=== PATIENT | male | born 1965 | race Caucasian/White ===

== ENCOUNTER 2016-06-30 09:46 | Emergency (ER) | payer OTHER, MEDICARE ==
[~2016-06-30 09:46] MED LIST: ALBUTEROL 3 ML3 ML INH; ASPIRIN CHILDRE81 MG PO; CARVEDILOL3.125 MG PO; COMPAZINE10 MG PO; COREG 12.5MG12.5 MG PO; COREG 25 MG TAB25 MG PO; FLEXERIL10 MG PO; LIDODERM 5% PAT1 PAT EXT; LIDODERM 5% PAT1 PAT TOP; LISINOPRIL40 MG PO; MIRALAX17 GM PO; OXYCODONE5 M1 PO; OXYCONTIN10 MG PO; PERCOCET 325 MG1 TA2 PO; PRINIVIL 5MG5 MG PO; SENNA CON/DOCUS1 TAB PO; SIMVASTATIN40 MG PO; SPIRONOLACTONE25 MG PO
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
== END 2016-06-30 09:57 | disposition expired ==
LOC: ERH 09:46
DX: T17.990A Other foreign object in respiratory tract, part unspecified in causing asphyxiation, initial encounter (principal); J96.90 Respiratory failure, unspecified, unspecified whether with hypoxia or hypercapnia
CPT/HCPCS: 1387; 94799